=== PATIENT | female | born 1955 | race Caucasian/White ===

== ENCOUNTER → 2023-11-14 12:49 | Outpatient (REF) | payer MEDICARE, OTHER, SELFPAY | LOC: WDC 12:49 | PROVIDERS: ATTENDING PHYSICIAN Internal Medicine Hematology & Oncology; FAMILY PHYSICIAN Family Medicine | DX: C50.212 Malignant neoplasm of upper-inner quadrant of left female breast (principal); Z12.31 Encounter for screening mammogram for malignant neoplasm of breast | CPT/HCPCS: 77063; 77067 ==

== ENCOUNTER → 2024-11-13 16:46 | Outpatient (REF) | payer MEDICARE, OTHER, SELFPAY | LOC: WDC 16:46 | PROVIDERS: ATTENDING PHYSICIAN Internal Medicine Hematology & Oncology | DX: Z12.31 Encounter for screening mammogram for malignant neoplasm of breast (principal) | CPT/HCPCS: 77063; 77067 ==

== ENCOUNTER → 2024-12-17 13:20 | Outpatient (REF) | payer MEDICARE, OTHER, SELFPAY | LOC: EMG 13:20 | PROVIDERS: ATTENDING PHYSICIAN Family Medicine | DX: M54.12 Radiculopathy, cervical region (principal); R20.2 Paresthesia of skin; G56.02 Carpal tunnel syndrome, left upper limb | CPT/HCPCS: 95886; 95909 ==